=== PATIENT | male | born 1955 | race Caucasian/White ===

== ENCOUNTER 2024-11-01 09:13 | Outpatient (OUT) | payer MEDICARE, BC, SELFPAY ==
--- NOTE | 2024-11-01 09:22 | ECG_ITS ---
[facility] Test Date: 2024-11-01 Pat Name: Rogers Matson Department: Room: - Gender: Male Clerk Carrier: : 1955 Requested By: NICK RODRIGUEZ Order Number: [id number] Reading MD: ALBA THORNTON M.D. Measurements Intervals [place] Rate: 54 P: 53 [place]: 175 QRS: -32 QRSD: 99 T: 2 QT: 429 QTc: 409 Interpretive Statements SINUS BRADYCARDIA MARKED LEFT AXIS DEVIATION [QRS AXIS < -30] Abnormal ECG No previous ECG available for comparison Electronically Signed On 11-01-2024 11:53:07 EDT by ALBA THORNTON M.D.
--- NOTE | 2024-11-01 10:28 | PM.PRESUREVA ---
History of Present Illness History of Present Illness Chief complaint: Left Kidney Stones Narrative: Patient presents for presurgical testing. Please see HPI from Dr. Mcwilliams dated October 08, 2024. Review of Systems ROS Narrative Please see ROS from Dr. Mcwilliams dated October 08, 2024. 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.2 - Neoplasm of unspecified behavior of bone, soft tissue, and skin (ICD-10) Back pain ?M54.9 - Dorsalgia, unspecified (ICD-10) Hypertension ?I10 - Essential (primary) hypertension (ICD-10) Lumbosacral spondylosis ?M47.817 - Spondylosis without myelopathy or radiculopathy, lumbosacral region (ICD-10) Prostatitis ?N41.9 - Inflammatory disease of prostate, unspecified (ICD-10) Peptic ulcer disease ?K27.9 - Peptic ulcer, site unspecified, unspecified as acute or chronic, without hemorrhage or perforation (ICD-10) UTI (urinary tract infection) ?N39.0 - Urinary tract infection, site not specified (ICD-10) Hematuria ?R31.9 - Hematuria, unspecified (ICD-10) Elevated PSA ?R97.20 - Elevated prostate specific antigen [PSA] (ICD-10) Hypercholesterolemia ?E78.00 - Pure hypercholesterolemia, unspecified (ICD-10) BPH with obstruction/lower urinary tract symptoms ?N40.1 - Benign prostatic hyperplasia with lower urinary tract symptoms (ICD-10) ?N13.8 - Other obstructive and reflux uropathy (ICD-10) Anxiety ?F41.9 - Anxiety disorder, unspecified (ICD-10) Kidney stones ?N20.0 - Calculus of kidney (ICD-10) Surgical History (Updated 11/01/24 @ 09:57 by Gela Griffin NP) History of surgery for malignant neoplasm ?Z98.890 - Other specified postprocedural states (ICD-10) History of esophagogastroduodenoscopy (EGD) ?Z98.890 - Other specified postprocedural states (ICD-10) History of colonoscopy ?Z98.890 - Other specified postprocedural states (ICD-10) S/P epidural steroid injection ?Z92.241 - Personal history of systemic steroid therapy (ICD-10) History of lumbosacral spine surgery ?Z98.890 - Other specified postprocedural states (ICD-10) H/O Achilles tendon repair ?Z98.890 - Other specified postprocedural states (ICD-10) History of hernia repair ?Z98.890 - Other specified postprocedural states (ICD-10) ?Z87.19 - Personal history of other diseases of the digestive system (ICD-10) H/O cystoscopy ?Z98.890 - Other specified postprocedural states (ICD-10) H/O lithotripsy ?Z98.890 - Other specified postprocedural states (ICD-10) H/O prostate biopsy ?Z98.890 - Other specified postprocedural states (ICD-10) H/O lithotripsy (10/19/24) ?Z98.890 - Other specified postprocedural states (ICD-10) H/O cystoscopy (10/19/24) ?Z98.890 - Other specified postprocedural states (ICD-10) Family History (Updated 11/01/24 @ 09:43 by Gela Griffin NP) Other Family history of cancer Family history of heart disease Family history of hypertension Family history of leukemia Family history of stroke Social History (Updated 11/01/24 @ 09:38 by Gela Griffin NP) Within the past year, how often did you have a drink containing alcohol: 4 or more times a week Smoking status: Never smoker Non-prescribed substance use: denies use Highest level of school completed/degree received: high school graduate Meds Home Medications and Allergies Home Medications ?Medication ?Instructions ?Recorded ?Confirmed ?Type amlodipine 5 mg-benazepril 10 mg 1 cap PO DAILY 11/01/24 11/01/24 History capsule aspirin 81 mg tablet,delayed 81 mg PO DAILY 11/01/24 11/01/24 History release (Adult Aspirin Regimen) atorvastatin 10 mg tablet 10 mg PO DAILY 11/01/24 11/01/24 History finasteride 5 mg tablet 5 mg PO DAILY 11/01/24 11/01/24 History hydrochlorothiazide 50 mg tablet 50 mg PO DAILY 11/01/24 11/01/24 History methylcellulose (laxative) 500 mg 500 mg PO DAILY 11/01/24 11/01/24 History tablet (Citrucel) tamsulosin 0.4 mg capsule 0.4 mg PO Q24H 11/01/24 11/01/24 History Allergies Allergy/AdvReac Type Severity Reaction Status Date / Time No Known Drug Allergies Allergy Verified 11/01/24 09:35 Exam Narrative Exam Narrative: Constitutional: Awake, alert, comfortable, well-appearing, nontoxic, interactive, vital signs as charted Head: Normocephalic, atraumatic Neck: Supple, normal appearance, normal range of motion, no meningeal signs, no lymphadenopathy Respiratory: No respiratory distress, breath sounds clear Cardiovascular: Regular rate and rhythm, strong and regular heart tones Abdomen: Nontender, normal bowel sounds, soft, no CVA tenderness Musculoskeletal: Normal gait, no swelling or edema Skin: No rashes or induration, no lesions, only visible skin inspected Neuro: No neurological deficits, normal sensation Psychiatric: Oriented ?3, normal affect Assessment and Plan Assessment and Plan (1) Kidney stones: Plan Left ESWL, possible cystoscopy, left retrograde, left ureteroscopy, holmium laser, possible left stent placement scheduled with Dr. Mcwilliams November 04, 2024.
== END 2024-11-01 09:14 | disposition home or self-care (01) ==
LOC: PST 09:17
PROVIDERS: PCP Family Medicine; Visit Provider Urology
DX: Z01.810 Encounter for preprocedural cardiovascular examination (principal); Z01.818 Encounter for other preprocedural examination; N20.0 Calculus of kidney
CPT/HCPCS: 93005; G0463

== ENCOUNTER 2024-11-04 08:10 | Day surgery (SDC) | payer MEDICARE, BC, SELFPAY ==
[2024-11-01 09:51] VITALS: BP 144/79; PULSE 59; TEMP 36.3; O2SAT 96; BMI 28.6
[2024-11-04] VITALS (10 sets, daily range): BP systolic 118–166; BP diastolic 63–86; PULSE 82–104; TEMP 36.4–36.7; O2SAT 92–97; BMI 28.2
--- NOTE | 2024-11-04 08:22 | XR_ITS ---
[address] [address] Patient Name: RAQUEL TINEO MRN: [id number] date: 1955 Sex: M Assigned Patient Location: [facility] Current Patient Location: [facility] Accession/Order Number: [id number] Exam Date: 11/04/2024 08:55 Report Date: 11/04/2024 08:56 At the request of: NICK RODRIGUEZ MD Procedure: XR abdomen 1V XR abdomen 1V 11/04/2024 8:30 AM SIGNS AND SYMPTOMS: ^kidney stones \S.br\ PROTOCOL: Frontal radiographs of the abdomen and pelvis COMPARISON: None FINDINGS: There is a 6 mm radiodense structure presumably along the left renal pelvis. There are additional smaller left-sided renal stones. Degenerative changes and postoperative changes are noted in the lumbar spine. Vascular calcifications are present in the pelvis. Degenerative changes are noted in the lumbar spine and hips. XR/XR abdomen 1V IMPRESSION: There is a 6 mm radiodense structure presumably along the left renal pelvis. There are additional smaller left-sided renal stones. Impression dictated by: Raj Webster M.D. 11/04/2024 8:56 AM Dictation Location: [place] [address] Electronically authenticated by: [id number] Y Date: 11/04/2024 08:56
[2024-11-04] MEDS: LACTATED RINGER'S SOLUTION 1,000 ML 50 ML IV ×2 (08:40→10:51)
[2024-11-04] MEDS: CEFAZOLIN SODIUM 2 GM/50 ML D5W PREMIX IV (09:17)
--- NOTE | 2024-11-04 09:55 | P.URON_ITS ---
Urology Surgery Operative Note Operative Note Procedure Date: 11/04/24 Time Out Performed: yes Pre-op Diagnosis: Left nephrolithiasis Post-op Diagnosis: same as pre-op Procedures performed: 1. Left ESWL. Anesthesia: General-LMA Primary Surgeon: Paulo Mcwilliams Complications: None Estimated blood loss (mL): 0 Findings: A 6 mm left renal pelvis stone and several 2 to 3 mm left midpole renal stones Specimens: None Drains: None Indications for Procedures: This gentleman had 2 stones in his left kidney 1 being 6 mm the other being 5 mm. He underwent left ESWL a few weeks ago. He passed gravel but still had a fair amount of stone burden remaining. He now presents for a second left ESWL treatment and possible ureteroscopic laser lithotripsy. He has signed an informed consent after all risks were explained. Some of these include bleeding, perinephric hematoma, infection and anesthesia to name a few. Detailed description of Procedure: The patient was brought to the Operating Room and placed on Siemens electromagnetic lithotripsy treatment table in the supine position. SCDs were placed on their lower extremities and turned on and functioning during the entire case. Timeout was done by all parties in the room. We all agreed upon the patient's identification and the planned procedures for this patient. General Anesthesia was then administered via LMA. Treatment head was then brought to the patient's correct side. While using flourscopy the stone was identified and lined up into the crosshairs. We then began applying shocks. I started applying shocks at power level 2.0 to the renal pelvis stone. We applied a total of 1000 shocks and this stone was 100% gone. We then lined up the smaller stone fragments remaining in the midpole. These were treated as 1 stone because they all lined up and the crosshairs. We applied 2000 shocks to these. Our last fluoroscopic image revealed no evidence of any formed stone remaining. Therefore, I did not need to do ureteroscopy. The procedure was terminated. He was then transferred to a [facility] bed and wheeled to PACU in stable condition.
--- NOTE | 2024-11-04 10:10 | PC.NURSE ---
Left flank area pink with abrasions noted
== END 2024-11-04 12:09 | disposition home or self-care (01) ==
PROVIDERS: PCP Family Medicine; Visit Provider Urology
PROC: (CPT 50590; principal; 2024-11-04 09:30)
DX: N20.0 Calculus of kidney (principal); I10 Essential (primary) hypertension; K27.9 Peptic ulcer, site unspecified, unspecified as acute or chronic, without hemorrhage or perforation
CPT/HCPCS: 50590; 74018; 82365; 99999; J0690; J1100; J1885; J2250; J2371; J2405; J2704; J3010